=== PATIENT | female | born 1945 | race Caucasian/White ===

== ENCOUNTER → 2019-05-28 | Outpatient (CLI) | payer MEDICARE ==
--- NOTE | 2019-05-28 18:42 | REP ---
PET/CT: History: Solitary pulmonary nodule. Comparisons: Comparison CT studies of the chest from [facility] are reviewed dated May 06, 2019, July 17, 2018, and October 22, 2018. Pulmonary parenchymal opacities are noted in the left upper lobe posteriorly and in the right middle lobe. TECHNIQUE: 60 minutes following the intravenous injection of a 8.47 mCi dose of F-18 FDG, three-dimensional PET scintigraphy is acquired from the skull base to the proximal thighs. Triplanar noncontrast CT scanning is acquired through the same anatomic range for attenuation correction, and image registration with scan parameters optimized to minimize radiation exposure to the patient. PET scintigraphy and CT datasets were fused and displayed on a workstation with multiplanar and projection display capability. PET/CT Findings: There is discernible but not hypermetabolic uptake in the chronic infiltrative opacity in the posterior segment of the left upper lobe. Maximum standard uptake value here is 1.69. There is no visible FDG accumulation in the right middle lobe nodule. Maximum standard uptake value is below one, 0.84. No other abnormal pulmonary parenchymal or thoracic hypermetabolic uptake is seen. Head and neck soft tissues are unremarkable. No abnormal uptake is seen in the abdomen or pelvis. Impression: There is non hypermetabolic uptake in the chronic infiltrate in the left upper lobe. The right middle lobe nodule shows no discernible FDG accumulation. Low grade malignancy cannot be completely excluded at either site. No other abnormal uptake. Electronically Signed by Parth Jacobs MD 05/28/2019 08:03 P
== END ==
LOC: M PLARAD 11:57
PROVIDERS: ATTEND Internal Medicine Pulmonary Disease
DX: R91.1 Solitary pulmonary nodule (principal)
CPT/HCPCS: 78815; A9552

== ENCOUNTER → 2020-06-08 | Outpatient (CLI) | payer MEDICARE ==
[~2020-06-08] MED LIST: ATEN50TA2 PO; CALC250T PO; CLOP75TA2 PO; COLA100C5 PO; D31000TA2 PO; ECOT81TA5 PO; FURO20TA2 PO; LISI10TA22 PO; PROAAER10 INH; ROSU20TA5 PO; SYMB16INH INH; SYNT88TA2 PO; TIOT18INH INH
[2020-06-08 13:28] LABS: HEMATOCRIT 46.8 % (36.0-47.0); HEMOGLOBIN 14.8 g/dl (12.0-15.5); MEAN CORPUSCULAR HEMOGLOBIN 29.3 pg (27.0-33.0); MEAN CORPUSCULAR HGB CONC 31.6 g/dl (32.0-36.5); MEAN CORPUSCULAR VOLUME 92.7 fl (80.0-96.0); PLATELET COUNT, AUTOMATED 224 10^3/uL (150-450); RED BLOOD COUNT 5.05 10^6/uL (4.00-5.40)
[2020-06-08 13:33] LABS: ABG BASE EXCESS 1.1 (-2.0-2.0); ABG HCO3 25.5 MEQ/L (22.0-26.0); ABG PARTIAL PRESSURE CO2 39.9 mmHg (35.0-45.0); ABG PARTIAL PRESSURE O2 67.7 mmHg (75.0-100.0); ABG STANDARD HCO3 25.4 MEQ/L (22.0-26.0); ABG TOTAL CO2 26.8 MEQ/L (23.0-31.0); ABG pH (ARTERIAL) 7.424 UNITS (7.350-7.450)
[2020-06-08 13:39] LABS: PROTHROMBIN TIME 13.4 SECONDS (12.5-14.3)
[2020-06-08 13:40] LABS: PARTIAL THROMBOPLASTIN TIME 31.5 SECONDS (24.2-38.5)
[2020-06-08 13:41] LABS: APPEARANCE, URINE CLEAR (CLEAR); BACTERIA, URINE AUTO 1+ (NEGATIVE); BILIRUBIN, URINE AUTO NEGATIVE (NEGATIVE); BLOOD, URINE BLOOD 1+ (NEGATIVE); COLOR, URINE YELLOW (YELLOW); GLUCOSE, URINE (UA) AUTO NEGATIVE (NEGATIVE); KETONE, URINE AUTO NEGATIVE (NEGATIVE); LEUKOCYTE ESTERASE, URINE AUTO NEGATIVE (NEGATIVE); NITRITE, URINE AUTO NEGATIVE (NEGATIVE); PROTEIN, URINE AUTO NEGATIVE (NEGATIVE); RBC, URINE AUTO 3 /HPF (0-3); SPECIFIC GRAVITY URINE AUTO 1.017 (1.002-1.035); SQUAMOUS EPITHELIAL CELL UR AU 1 /HPF (0-6); UROBILINOGEN, URINE AUTO 0.2 mg/dL (0.0-2.0); WBC, URINE AUTO 0 /HPF (0-3)
[2020-06-08 14:58] LABS: BLOOD UREA NITROGEN 19 MG/DL (7-18); CALCIUM LEVEL 10.1 MG/DL (8.8-10.2); CARBON DIOXIDE LEVEL 32 MEQ/L (21-32); CHLORIDE LEVEL 103 MEQ/L (98-107); GLOMERULAR FILTRATION RATE > 60.0 (>39); GLUCOSE, FASTING 101 MG/DL (70-100); POTASSIUM SERUM 4.2 MEQ/L (3.5-5.1); SODIUM LEVEL 140 MEQ/L (136-145)
--- NOTE | 2020-06-08 19:59 | REP ---
INDICATION: LEFT LOBE ABNORMALITY COMPARISON: CT 05/06/2019 from [facility]. TECHNIQUE: PA/Lateral FINDINGS: Lungs: Ill-defined vague opacity is seen in the left upper lobe at the site of the previously identified CT abnormality. Otherwise there is mild diffuse accentuation of interstitial markings bilaterally. Heart: Normal in size. Mediastinum: Mediastinal silhouette unremarkable. Pleural angles: Unremarkable.. Bones and soft tissues: There are mild degenerative changes of the spine without compression deformity. IMPRESSION: Mild ill-defined opacity in left upper lobe at the site of the previously identified CT abnormality. <Electronically signed by Cezar Dias > 06/08/201954
== END ==
LOC: M ADMPAT 12:56
PROVIDERS: ATTEND Thoracic Surgery (Cardiothoracic Vascular Surgery)
DX: R91.1 Solitary pulmonary nodule (principal); R91.8 Other nonspecific abnormal finding of lung field

== ENCOUNTER → 2020-06-08 | Outpatient (CLI) | payer MEDICARE ==
[~2020-06-08] MED LIST changes: +ISOVUE-370 76% 100ML VIAL As Ordered ONE
--- NOTE | 2020-06-08 17:44 | REP ---
INDICATION: SOLITARY PULMONARY NODULE. COMPARISON: CT 05/06/2019, 10/22/2018 at [facility] TECHNIQUE: Noncontrast scanning with coronal and sagittal reconstructions provided. FINDINGS: In the medial segment of the right middle lobe there is a 6.5 mm solid nodule with a generally triangular shaped. It is unchanged by my direct measurement from 05/06/2019. In the left upper lobe abutting the anterior margin of the major fissure near its insertion, there is an ill-defined parenchymal focus which is increasing in size further by my measurement. It is now 3.7 cm in transverse diameter, previously 2.5 cm. There is apical pleuroparenchymal scarring on the right unchanged. Emphysematous changes in the mid and upper lung zones are seen and there is cylindrical bronchiectasis noted. Some dependent atelectatic changes in the deep sulcus and posteriorly in the right lower lobe. No pleural thickening, pleural based mass or other acute finding. The heart is not enlarged there is left atrial enlargement however. No pericardial thickening or effusion is seen. The aorta is without aneurysm or dissection. The main, right and left pulmonary arteries in the mediastinum are without filling defects the lobar vessels also were grossly unremarkable. There is no pathologic sized mediastinal, hilar, axillary or supraclavicular adenopathy. Bone windows show the superior endplate depression of L1 without evidence of acute compression deformity or destructive bone lesion. Sternum, manubrium, medial clavicles, shoulders and ribs grossly intact the upper abdominal organs visible were also grossly intact. There is a dextroconvex scoliosis of the mid to lower thoracic spine. No hiatal hernia. Low-density nodule in the left adrenal gland was proven to be CT low-attenuation with - 3.26 HU on the prior study by my measurement. Nothing acute in the upper abdomen IMPRESSION: 1. Stable pulmonary nodule in the medial segment right middle lobe. 2. Increasing size of patchy density in the posterior segment left upper lobe now 33.7 cm versus 2.5 cm on the previous CT. This should be viewed with some suspicion and consideration for PET-CT scanning is warranted in my opinion. Other chronic changes as described. No other new significant finding. <Electronically signed by Duran Pacheco > 06/08/20 [id number]
== END ==
LOC: M RAD 14:26
PROVIDERS: ATTEND Thoracic Surgery (Cardiothoracic Vascular Surgery)
DX: R91.1 Solitary pulmonary nodule (principal); R91.8 Other nonspecific abnormal finding of lung field; J44.9 Chronic obstructive pulmonary disease, unspecified
CPT/HCPCS: 36415; 71046; 71260; 80048; 81001; 82803; 85027; 85610; 85730; 93005; Q9967

== ENCOUNTER 2020-06-15 07:30 | Inpatient (IN) | payer MEDICARE ==
[~2020-06-15] VITALS: Ht 167.6 cm; Wt 73.4 kg
[~2020-06-15 07:30] MED LIST changes: -ISOVUE-370 76% 100ML VIAL As Ordered ONE; +LIDOCAINE 1% MDV 20ML VIAL SQ PRN; +LIDOCAINE 2% 100MG/5ML SDV (FOR ANES.) As Ordered ONE; +LIDOCAINE 2% W/EPINEPHRINE 20ML VIAL **PRES FREE As Ordered ONE; +LR 1,000 ML IV ONE; +MIDAZOLAM INJ 2MG/2ML VIAL (J2250 PER 1MG) As Ordered ONE; +MIDAZOLAM INJ 2MG/2ML VIAL (J2250 PER 1MG) IV PRN; +MORPHINE 10 MG/ML 1ML VIAL (J2270) As Ordered ONE; +MORPHINE PRES-FREE INJ 10 MG/10 ML VIAL (J2274) As Ordered ONE; +ONDANSETRON 4MG/2ML VIAL As Ordered ONE; +PHENYLEPHRINE 10MG/ML 1ML VIAL (J2370 PER 1) As Ordered ONE; +PHENYLephrine 500MCG 5ML (100MCG/ML) SYRINGE As Ordered ONE; +ROCURONIUM BROMIDE 50 MG/5 ML VIAL As Ordered ONE; +SUGAMMADEX SODIUM 500 MG/5 ML VIAL (BRIDION) As Ordered ONE; +ceFAZolin SOD 2 GM in IV 1 EA IV ONE; +dexameTHASONE 4 MG/ML 1ML VIAL (J1100 PER 1MG) As Ordered ONE; +ePHEDrine SULFATE 25 MG/5 ML(5MG/ML) SYRINGE As Ordered ONE; +fentaNYL 100 MCG/2 ML INJECTION (J3010) As Ordered ONE; +fentaNYL 100 MCG/2 ML INJECTION (J3010) IV PRN; +propofoL 200 MG/20 ML VIAL As Ordered ONE
[2020-06-15] MEDS ORDERED: BUPIVACAINE LIPOSOME/PF 1.3% 20ML VIAL (13.3MG/ML)(EXPAREL)(C9290 PER1MG) As Ordered ONE (07:31)
[2020-06-15] MEDS ORDERED: BUPIVACAINE HCL 0.5% 10ML VIAL As Ordered ONE (07:31)
[2020-06-15] MEDS ORDERED: CETACAINE SPRAY 5GM As Ordered ONE (07:31)
[2020-06-15] MEDS ORDERED: MUPIROCIN 2% OINT 22 GM TUBE As Ordered ONE (07:55)
[2020-06-15] MEDS ORDERED: MIDAZOLAM INJ 2MG/2ML VIAL (J2250 PER 1MG) As Ordered ONE (08:47)
[2020-06-15] MEDS ORDERED: fentaNYL 100 MCG/2 ML INJECTION (J3010) As Ordered ONE (08:47)
[2020-06-15] MEDS ORDERED: LEVALBUTEROL 1.25 MG/0.5 ML CONCENTRATE NEB NEB PRN (08:55)
[2020-06-15] MEDS ORDERED: NORCO, ANEXSIA 5/325MG TABLET (HYDROcodone/ACETAMINOPHEN) PO PRN (08:55)
[2020-06-15] MEDS ORDERED: LIDOCAINE 1% MDV 20ML VIAL XX ONE (08:55)
[2020-06-15] MEDS ORDERED: PERCOCET 5MG/325MG TAB PO PRN ×3 (08:55→15:10)
[2020-06-15] MEDS ORDERED: MUPIROCIN 2% OINT 22 GM TUBE TOP ONE (09:00)
[2020-06-15] MEDS ORDERED: ONDANSETRON 4MG/2ML VIAL IV PRN ×2 (09:40→15:10)
[2020-06-15] MEDS ORDERED: WALLBOXKEY XX PRN (09:40)
[2020-06-15] MEDS ORDERED: FENTANYL/BUPIVACAINE/NACL BAG 250 ML EPIDURAL SCH (09:40)
[2020-06-15] MEDS ORDERED: diphenhydrAMINE 50MG/ML VIAL (J1200) IV PRN (09:40)
[2020-06-15] MEDS ORDERED: NALOXONE INJ 0.4MG/1ML VIAL (J2310 PER 1MG) IV PRN (09:40)
[2020-06-15] MEDS ORDERED: EPIDURAL/PCA KEYS XX PRN (09:40)
[2020-06-15 09:45] LABS: BASO % 0.3 % (0.0-1.0); EOS # 0.1 10^3/uL (0.0-0.5); HEMATOCRIT 44.1 % (36.0-47.0); HEMOGLOBIN 14.1 g/dl (12.0-15.5); LYMPH # 0.8 10^3/uL (1.5-5.0); LYMPH % 11.9 % (24.0-44.0); MEAN CORPUSCULAR HEMOGLOBIN 29.1 pg (27.0-33.0); MEAN CORPUSCULAR VOLUME 91.1 fl (80.0-96.0); MONO # 0.4 10^3/uL (0.0-0.8); MONO % 6.1 % (2.0-8.0); NEUTROPHILS # 5.1 10^3/uL (1.5-8.5); NEUTROPHILS % 80.4 % (36.0-66.0); PLATELET COUNT, AUTOMATED 196 10^3/uL (150-450); RED BLOOD COUNT 4.84 10^6/uL (4.00-5.40); WHITE BLOOD COUNT 6.3 10^3/uL (4.0-10.0)
[2020-06-15 10:16] LABS: BLOOD UREA NITROGEN 15 MG/DL (7-18); CALCIUM LEVEL 9.4 MG/DL (8.8-10.2); CARBON DIOXIDE LEVEL 25 MEQ/L (21-32); CHLORIDE LEVEL 111 MEQ/L (98-107); GLOMERULAR FILTRATION RATE > 60.0 (>39); GLUCOSE, FASTING 109 MG/DL (70-100); POTASSIUM SERUM 4.1 MEQ/L (3.5-5.1); SODIUM LEVEL 142 MEQ/L (136-145)
[2020-06-15] MEDS ORDERED: HYDROmorphone HCL 2 MG/ML 1ML VIAL (J1170) As Ordered ONE (12:05)
[2020-06-15] MEDS ORDERED: ROCURONIUM BROMIDE 50 MG/5 ML VIAL As Ordered ONE (13:01)
[2020-06-15] MEDS ORDERED: PHENYLephrine 500MCG 5ML (100MCG/ML) SYRINGE As Ordered ONE (14:35)
[2020-06-15] MEDS ORDERED: LR 1,000 ML IV SCH (15:10)
[2020-06-15] MEDS ORDERED: METOCLOPRAMIDE INJ 10MG/2ML VIAL (J2765 PER 1) IV PRN (15:10)
[2020-06-15] MEDS ORDERED: fentaNYL 100 MCG/2 ML INJECTION (J3010) IV PRN (15:10)
--- NOTE | 2020-06-15 15:17 | REP ---
INDICATION: s/p lung resection COMPARISON: 06/08/2020 TECHNIQUE: Portable AP view of the chest FINDINGS: Two left-sided chest tubes extend to the left apex and a small left pneumothorax is identified along with small amount of subcutaneous emphysema. Lung anders demonstrate chronic appearing interstitial changes. No focal consolidation. No effusion. Mediastinum and cardiac silhouette stable including chronic scoliosis. IMPRESSION: 1. Small left apical pneumothorax. Two left apical chest tubes. 2. Chronic appearing pulmonary parenchymal changes. <Electronically signed by Placido Valdes > 06/15/20 [id number]
[2020-06-15] MEDS: KCL 20MEQ IN D5/NS 1000ML 1,000 ML IV SCH (15:20)
[2020-06-15 15:42] LABS: ABG BASE EXCESS -3.9 (-2.0-2.0); ABG HCO3 21.7 MEQ/L (22.0-26.0); ABG O2 SATURATION 99.9 % (95.0-99.0); ABG PARTIAL PRESSURE CO2 41.5 mmHg (35.0-45.0); ABG PARTIAL PRESSURE O2 344.8 mmHg (75.0-100.0); ABG STANDARD HCO3 21.3 MEQ/L (22.0-26.0); ABG pH (ARTERIAL) 7.337 UNITS (7.350-7.450)
[2020-06-15] MEDS: KETOROLAC 30 MG/ML 1ML VIAL IV SCH ×3 (15:57→23:44)
[2020-06-15] MEDS: ONDANSETRON 4MG/2ML VIAL IV PRN ×2 (16:01→19:40)
[2020-06-15 16:21] LABS: HEMATOCRIT 41.3 % (36.0-47.0); HEMOGLOBIN 13.4 g/dl (12.0-15.5); MEAN CORPUSCULAR HEMOGLOBIN 29.7 pg (27.0-33.0); MEAN CORPUSCULAR HGB CONC 32.4 g/dl (32.0-36.5); MEAN CORPUSCULAR VOLUME 91.6 fl (80.0-96.0); PLATELET COUNT, AUTOMATED 166 10^3/uL (150-450); RED BLOOD COUNT 4.51 10^6/uL (4.00-5.40); WHITE BLOOD COUNT 9.3 10^3/uL (4.0-10.0)
[2020-06-15 16:46] LABS: BLOOD UREA NITROGEN 10 MG/DL (7-18); CALCIUM LEVEL 7.9 MG/DL (8.8-10.2); CARBON DIOXIDE LEVEL 24 MEQ/L (21-32); CHLORIDE LEVEL 111 MEQ/L (98-107); CREATININE FOR GFR 0.55 MG/DL (0.55-1.30); GLOMERULAR FILTRATION RATE > 60.0 (>39); GLUCOSE, FASTING 123 MG/DL (70-100); POTASSIUM SERUM 3.8 MEQ/L (3.5-5.1); SODIUM LEVEL 141 MEQ/L (136-145)
[2020-06-15] MEDS: METOCLOPRAMIDE INJ 10MG/2ML VIAL (J2765 PER 1) IV PRN ×2 (16:48→22:40)
[2020-06-15 17:20] VITALS: BP 153/72
[2020-06-15 17:29] VITALS: BP_SYST 148; BP_SYST 149; BP_DIAS 67; BP_DIAS 99
[2020-06-15 18:00] VITALS: BP_SYST 134; BP_SYST 146; BP_DIAS 60; BP_DIAS 63
[2020-06-15] MEDS: MOM 30ML SUSPENSION UDC PO SCH (18:06)
[2020-06-15] MEDS: atenoloL 50 MG TAB PO SCH (18:07)
[2020-06-15] MEDS: ROSUVASTATIN 10 MG TAB (CRESTOR) PO SCH (18:08)
[2020-06-15] MEDS: PANTOPRAZOLE 40MG TAB (PROTONIX) PO SCH (18:08)
[2020-06-15] MEDS: VITAMIN D 1,000 INTERNATIONAL UNITS TABLET PO SCH (18:08)
[2020-06-15] MEDS: ASPIRIN 81MG ENTERIC TABLET PO SCH (18:08)
[2020-06-15] MEDS: LEVALBUTEROL 1.25 MG/0.5 ML CONCENTRATE NEB NEB SCH ×2 (18:18→19:53)
[2020-06-15] MEDS: ceFAZolin SOD 1 GM in D5W MINI-BAG PLUS 50 ML IV SCH ×2 (18:25→23:44)
[2020-06-15 18:30] VITALS: BP_SYST 135; BP_SYST 154; BP_DIAS 63; BP_DIAS 72
[2020-06-15] MEDS: SYMBICORT 160/4.5MCG INHALER 6GM INH SCH (19:53)
[2020-06-15] MEDS: TIOTROPIUM INHALER/CAPSULE (SPIRIVA) INH SCH (19:53)
[2020-06-15 20:00] VITALS: BP_SYST 135; BP_SYST 144; BP_DIAS 62; BP_DIAS 99
[2020-06-15] MEDS: HEPARIN SOD (PORCINE) 5000UNITS/ML 1ML VIAL/SYRINGE SC SCH (20:06)
[2020-06-15 22:00] VITALS: BP_SYST 125; BP_SYST 94; BP_DIAS 44; BP_DIAS 53
[2020-06-16] VITALS (9 sets, daily range): BP systolic 107–138; BP diastolic 49–90
[2020-06-16] MEDS: LEVALBUTEROL 1.25 MG/0.5 ML CONCENTRATE NEB NEB SCH ×4 (01:53→20:00)
[2020-06-16 04:16] LABS: BASO % 0.1 % (0.0-1.0); HEMATOCRIT 37.9 % (36.0-47.0); HEMOGLOBIN 12.1 g/dl (12.0-15.5); LYMPH # 0.4 10^3/uL (1.5-5.0); LYMPH % 4.3 % (24.0-44.0); MEAN CORPUSCULAR HEMOGLOBIN 29.2 pg (27.0-33.0); MEAN CORPUSCULAR HGB CONC 31.9 g/dl (32.0-36.5); MEAN CORPUSCULAR VOLUME 91.5 fl (80.0-96.0); MONO # 0.6 10^3/uL (0.0-0.8); MONO % 6.2 % (2.0-8.0); NEUTROPHILS # 8.9 10^3/uL (1.5-8.5); NEUTROPHILS % 89.1 % (36.0-66.0); PLATELET COUNT, AUTOMATED 180 10^3/uL (150-450); RED BLOOD COUNT 4.14 10^6/uL (4.00-5.40)
[2020-06-16 04:41] LABS: BLOOD UREA NITROGEN 10 MG/DL (7-18); CALCIUM LEVEL 7.9 MG/DL (8.8-10.2); CARBON DIOXIDE LEVEL 23 MEQ/L (21-32); CHLORIDE LEVEL 112 MEQ/L (98-107); CREATININE FOR GFR 0.77 MG/DL (0.55-1.30); GLOMERULAR FILTRATION RATE > 60.0 (>39); GLUCOSE, FASTING 149 MG/DL (70-100); POTASSIUM SERUM 3.9 MEQ/L (3.5-5.1); SODIUM LEVEL 141 MEQ/L (136-145)
[2020-06-16] MEDS: KETOROLAC 30 MG/ML 1ML VIAL IV SCH ×4 (06:01→23:22)
[2020-06-16] MEDS: LEVOTHYROXINE 88MCG TABLET (0.088 MG) PO SCH (06:02)
[2020-06-16] MEDS: KCL 20MEQ IN D5/NS 1000ML 1,000 ML IV SCH ×2 (06:02→21:55)
[2020-06-16 06:10] LABS: ABG BASE EXCESS -1.9 (-2.0-2.0); ABG HCO3 22.5 MEQ/L (22.0-26.0); ABG O2 SATURATION 97.8 % (95.0-99.0); ABG PARTIAL PRESSURE CO2 37.2 mmHg (35.0-45.0); ABG PARTIAL PRESSURE O2 95.7 mmHg (75.0-100.0); ABG STANDARD HCO3 22.9 MEQ/L (22.0-26.0); ABG TOTAL CO2 23.7 MEQ/L (23.0-31.0)
[2020-06-16] MEDS: ONDANSETRON 4MG/2ML VIAL IV PRN ×2 (07:22→12:30)
[2020-06-16] MEDS: METOCLOPRAMIDE INJ 10MG/2ML VIAL (J2765 PER 1) IV PRN (07:45)
--- NOTE | 2020-06-16 08:20 | REP ---
INDICATION: s/p lung resection COMPARISON: 06/15/2020 TECHNIQUE: PA and lateral. FINDINGS: Postsurgical changes involving the left hemithorax with 2 stable chest tubes extending to the left apex and small residual apical pneumothorax appear relatively unchanged. Minimal basilar atelectasis cannot be excluded. No obvious effusion. Mediastinum and cardiac silhouette are stable and within normal limits. Skeletal structures are status quo. IMPRESSION: Stable postsurgical changes involving the left hemithorax including small left apical pneumothorax. No new acute process appreciated. <Electronically signed by Placido Valdes > 06/16/20 0841
[2020-06-16] MEDS: ROSUVASTATIN 10 MG TAB (CRESTOR) PO SCH (09:00)
[2020-06-16] MEDS: MOM 30ML SUSPENSION UDC PO SCH (09:00)
[2020-06-16] MEDS: ASPIRIN 81MG ENTERIC TABLET PO SCH (09:00)
[2020-06-16] MEDS: PANTOPRAZOLE 40MG TAB (PROTONIX) PO SCH (09:00)
[2020-06-16] MEDS: VITAMIN D 1,000 INTERNATIONAL UNITS TABLET PO SCH (09:00)
[2020-06-16] MEDS: ceFAZolin SOD 1 GM in D5W MINI-BAG PLUS 50 ML IV SCH ×3 (09:13→23:21)
[2020-06-16] MEDS: HEPARIN SOD (PORCINE) 5000UNITS/ML 1ML VIAL/SYRINGE SC SCH ×2 (09:16→20:16)
[2020-06-16] MEDS: SYMBICORT 160/4.5MCG INHALER 6GM INH SCH ×2 (09:27→20:27)
--- NOTE | 2020-06-16 10:53 | RO ---
OPERATIVE NOTE DATE OF OPERATION: 06/15/2020 PREOPERATIVE DIAGNOSIS: Left upper lobe lung lesion. POSTOPERATIVE DIAGNOSIS: Well-differentiated adenocarcinoma. PROCEDURE: Left upper lobe wedge resection with VATS techniques followed by a left upper lobectomy via an open thoracotomy with a mediastinal lymphadenectomy, a five-level rib block and a bronchoscopy. SURGEON: Jose Mbary MD NURSE CONSULTANT: ANESTHESIA: FINDINGS: The lesion was surprisingly easy to find thoracoscopically. A large piece of left upper lobe was then wedged and sent to pathology. I went to pathology to go over the slides with the pathologist and it was indeed at first a very hard call but there were mycotic features seen with a well differentiated adenocarcinoma. We therefore proceeded to a lobectomy. Bronchoscopy revealed a normal branching tracheobronchial tree with scant secretions. There were no endobronchial lesions. DESCRIPTION OF PROCEDURE: Under satisfactory single-lumen tube intubation and general anesthesia, the bronchoscope was passed into the tracheobronchial tree. The above findings were noted. Each segment and subsegment was thoroughly inspected. There were only scant secretions. There were no endobronchial lesions. The patient was then turned into the right lateral decubitus position and prepped and draped in the usual sterile fashion. Three thoracoscopic incisions were made. There were no adhesions to the chest wall and there was a complete fissure. The lesion was seen as a diffuse brown to us patchy area on the fissure of the left upper lobe. This was wedged out and sent to pathology. The wedge was accomplished with an [place] 4.5 stapler. Upon receiving the report from pathology, preparations were made for a thoracotomy. A posterolateral incision was made and the latissimus dorsi was divided as was the slip of the serratus anterior. The chest was entered in the fifth intercostal space above the sixth rib. I had to extend the incision to make room to operate secondary to her body habitus physiology. Dissection was started in the posterior interlobar pulmonary artery by dissecting the posterior mediastinum. The posterior fissure was completed by use of a harmonic scalpel. Dissection was carried up onto the interlobar pulmonary artery in the fissure. There was about 5-7 mm of lung tissue between the fissure and the vessels themselves necessitating that approach. The inter-pulmonary artery was then dissected up towards the main pulmonary artery, noting four branches. Each of these branches was taken with a vascular stapler. The pulmonary arteries were rather adherent and sticky secondary to an old inflammatory process which made the dissection a little more lengthy and tedious. Finally after dividing all the vessels and particularly the terminal lingular artery, the mediastinal pulmonary hilum was then incised and the inferior and superior pulmonary veins could be visualized. The inferior pulmonary ligament was taken down by the use of electrocautery. I then completed the fissure anteriorly by use of an [place] ASHIA stapler. This then left the vein in the bronchus. The vein was again found to be quite adherent and sticky to the underlying bronchus which again required a more lengthy dissection than usual. Finally it could be isolated with a vessel loop being placed around it and the dissection completed and divided by use of a ASHIA vascular stapler. This then left the bronchus. The bronchus was stapled with an [place] 4.5 mm stapler but was not fired until the lung was reinflated to assure that the left lower lobe would inflate properly which it did. The stapler was then fired and the specimen was delivered to the lab for pathological examination. Attention was then turned to the AP window. It was thoroughly dissected and only two small nodes were found. The course of the phrenic nerve was verified so as to assiduously preserve. There was an inferior pulmonary ligament noted which was also removed by use of the harmonic scalpel. The bronchus was tested at 30 cm of water and it was found to be intact. Tisseel glue was then placed along the vessel staple lines as well as the bronchus. Final rib block consisting of Marcaine and Exparel was then instilled below each rib. Two chest tubes were placed, a #24 straight and 24 curved posteriorly. The ribs were reapproximated with the use of #1 Prolene [id number] sutures. Just prior to tying the pericostal sutures, the staple lines were again covered with another vial of Tisseel glue including parenchymal leaks. The extrathoracic muscles were reapproximated by use of running 0 Vicryl suture, the subcutaneous tissue by use of 3-0 Vicryl suture and the skin by use of 3-0 Monocryl subcuticular suture. The auxiliary incisions for the VATS procedure were closed in the same way. The patient tolerated the procedure well and left the operating room in satisfactory condition for the recovery room.
--- NOTE | 2020-06-16 11:48 | IPN ---
PROGRESS NOTE DATE: 06/16/2020 SUBJECTIVE: This is now the first postoperative day for Mrs. Miramontes. She had a physiologically stable night of surgery; however, she has been nauseated ever since coming back from the operating room. I suspect the nausea is secondary to the Fentanyl and the epidural, and I have asked anesthesia to just put bupivacaine in the epidural. OBJECTIVE: VITAL SIGNS: Show a T-max of 97.7 with a heart rate that ranges between 59 and 97 in sinus rhythm. Respiratory rate of constant 18 who is 97% to 99% saturated on 2 liters nasal cannula and whose blood pressure is ranging between 107/49 to 131/54. INTAKE AND OUTPUT: Over the past 24 hours has been recorded as 4150 in and 1605 out for a positivity of 2500 mL. She has put out 330 mL from the chest tube and she has a considerable air leak. Weight today is 74.3 kg compared to 71 kg yesterday. She has taken in very little p.o. intake secondary to her nausea. She has put 1175 mL in urine. RESPIRATORY: Her left lung shows some faint rales in late inspiration. There is no subcutaneous emphysema. Left lung shows normal vesicular sounds. Percussion notes are full to the diaphragm. CARDIAC: Without murmurs, clicks, gallops, or rubs. I cannot feel her PMI. S1 and S2 are normal. ABDOMEN: Soft and nontender. Bowel sounds are positive. There is no hepatomegaly. No CVA tenderness. EXTREMITIES: Show no pretibial edema. No calf tenderness. No differential swelling of the upper extremities. SKIN: Warm, dry, and perfused without cyanosis or mottling, including that of the nail beds and knees. NECK: Supple. There is no jugular venous distention. No subcutaneous emphysema. Trachea is midline. MOUTH: Shows the mucous membranes to be pink and moist. Lips and commisures without lesions. EYES: Show her pupils equal and reactive. Extraocular movements are intact. Sclerae nonicteric. NEUROLOGIC: Shows II through XII intact. Normal gross motor, gross sensation intact. Gait is not tested. PSYCHIATRIC: Shows her to be awake, alert, and oriented x3 with appropriate mood and affect and conversational. LABORATORY DATA: Her white count today is 10.0 with hemoglobin and hematocrit of 12.1 and 37.9; this is down from 13.4 and 41.3 yesterday secondary to hemodilution. Platelet count is 180,000 and stable and differential shows 89% neutrophils, 4% lymphocytes, and 6% monocytes. There are no immature forms and no toxic granulations. Her electrolytes today are normal with a BUN and creatinine of 10 and 0.77, glucose of 149, and calcium of 7.9. Blood gases today show a pH of 7.40 with a pCO2 of 37 and a pO2 of 95 with a base excess of -1.9. IMAGING DATA: Her chest x-ray today shows her lungs fully expand to the chest wall. There is some slight subcutaneous emphysema on the upper lateral chest wall. Chest tubes are in good place. I see no infiltrates. Final pathology is pending. IMPRESSION: 1. Well-differentiated adenocarcinoma left upper lobe. 2. Postoperative day one status post left upper lobectomy. 3. Chronic obstructive pulmonary disease (COPD). 4. Hypertension. 5. Peripheral vascular disease previously on Plavix. 6. Hypothyroidism. PLAN AND DISCUSSION: I will continue her chest tubes on suction today. As noted above, we will discontinue the Fentanyl from her epidural to see if it will help her nausea. Final pathology is still pending. We will discontinue her arterial line and continue her Echavarria catheter.
[2020-06-16] MEDS: BUPIVACAINE/NACL BAG 250 ML EPIDURAL SCH (12:30)
[2020-06-16] MEDS ORDERED: METOCLOPRAMIDE INJ 10MG/2ML VIAL (J2765 PER 1) IV PRN (13:00)
[2020-06-16] MEDS ORDERED: NALOXONE INJ 0.4MG/1ML VIAL (J2310 PER 1MG) IV PRN (13:00)
[2020-06-16] MEDS ORDERED: EPIDURAL/PCA KEYS XX PRN (13:00)
[2020-06-16] MEDS ORDERED: diphenhydrAMINE 50MG/ML VIAL (J1200) IV PRN (13:00)
[2020-06-16] MEDS ORDERED: ONDANSETRON 4MG/2ML VIAL IV PRN (13:00)
[2020-06-16] MEDS ORDERED: WALLBOXKEY XX PRN (13:00)
[2020-06-16] MEDS: atenoloL 50 MG TAB PO SCH (18:16)
[2020-06-16] MEDS: TIOTROPIUM INHALER/CAPSULE (SPIRIVA) INH SCH (20:27)
[2020-06-17] VITALS (7 sets, daily range): BP systolic 115–152; BP diastolic 55–74
[2020-06-17] MEDS: KCL 20MEQ IN D5/NS 1000ML 1,000 ML IV SCH ×2 (00:55→15:19)
[2020-06-17] MEDS: LEVALBUTEROL 1.25 MG/0.5 ML CONCENTRATE NEB NEB SCH ×4 (02:00→20:00)
[2020-06-17 04:49] LABS: BASO % 0.1 % (0.0-1.0); EOS % 0.3 % (0.0-3.0); HEMOGLOBIN 11.8 g/dl (12.0-15.5); LYMPH # 0.5 10^3/uL (1.5-5.0); LYMPH % 6.7 % (24.0-44.0); MEAN CORPUSCULAR HEMOGLOBIN 29.7 pg (27.0-33.0); MEAN CORPUSCULAR HGB CONC 31.9 g/dl (32.0-36.5); MEAN CORPUSCULAR VOLUME 93.2 fl (80.0-96.0); MONO # 0.6 10^3/uL (0.0-0.8); MONO % 7.2 % (2.0-8.0); NEUTROPHILS # 6.7 10^3/uL (1.5-8.5); NEUTROPHILS % 85.4 % (36.0-66.0); PLATELET COUNT, AUTOMATED 171 10^3/uL (150-450); RED BLOOD COUNT 3.97 10^6/uL (4.00-5.40); WHITE BLOOD COUNT 7.8 10^3/uL (4.0-10.0)
[2020-06-17] MEDS: ONDANSETRON 4MG/2ML VIAL IV PRN ×2 (04:52→13:01)
[2020-06-17 05:19] LABS: BLOOD UREA NITROGEN 8 MG/DL (7-18); CALCIUM LEVEL 8.3 MG/DL (8.8-10.2); CARBON DIOXIDE LEVEL 26 MEQ/L (21-32); CHLORIDE LEVEL 114 MEQ/L (98-107); CREATININE FOR GFR 0.55 MG/DL (0.55-1.30); GLOMERULAR FILTRATION RATE > 60.0 (>39); GLUCOSE, FASTING 114 MG/DL (70-100); POTASSIUM SERUM 4.3 MEQ/L (3.5-5.1); SODIUM LEVEL 143 MEQ/L (136-145)
[2020-06-17] MEDS: LEVOTHYROXINE 88MCG TABLET (0.088 MG) PO SCH (06:02)
[2020-06-17] MEDS: KETOROLAC 30 MG/ML 1ML VIAL IV SCH ×3 (06:03→17:11)
--- NOTE | 2020-06-17 07:51 | REP ---
INDICATION: s/p lung resection COMPARISON: 06/16/2020 TECHNIQUE: PA and lateral. FINDINGS: Small left apical pneumothorax slightly increased from prior examination. Two left-sided chest tubes extending to the apex remains stable. Aerated lung anders are essentially unchanged. Mediastinum and cardiac silhouette within normal limits. Skeletal structures stable. IMPRESSION: 1. Slight increased to the left apical pneumothorax. <Electronically signed by Plaicdo Valdes > 06/17/20 0798
[2020-06-17] MEDS: SYMBICORT 160/4.5MCG INHALER 6GM INH SCH ×2 (07:54→20:00)
[2020-06-17] MEDS: HEPARIN SOD (PORCINE) 5000UNITS/ML 1ML VIAL/SYRINGE SC SCH ×2 (08:44→20:13)
[2020-06-17] MEDS: atenoloL 50 MG TAB PO SCH (08:50)
[2020-06-17] MEDS: ROSUVASTATIN 10 MG TAB (CRESTOR) PO SCH (08:50)
[2020-06-17] MEDS: VITAMIN D 1,000 INTERNATIONAL UNITS TABLET PO SCH (08:51)
[2020-06-17] MEDS: PANTOPRAZOLE 40MG TAB (PROTONIX) PO SCH (08:51)
[2020-06-17] MEDS: MOM 30ML SUSPENSION UDC PO SCH (09:00)
[2020-06-17] MEDS: ASPIRIN 81MG ENTERIC TABLET PO SCH (09:06)
[2020-06-17] MEDS: BISACODYL 10 MG SUPP PR PRN (11:49)
[2020-06-17] MEDS ORDERED: FUROSEMIDE 40MG/4ML VIAL (J1940) IV ONE (12:00)
[2020-06-17] MEDS: BUPIVACAINE/NACL BAG 250 ML EPIDURAL SCH (13:07)
[2020-06-17] MEDS: DOCUSATE SODIUM 100MG CAPSULE PO PRN (20:06)
[2020-06-17] MEDS: TIOTROPIUM INHALER/CAPSULE (SPIRIVA) INH SCH (20:43)
[2020-06-18] VITALS (7 sets, daily range): BP systolic 117–160; BP diastolic 56–71
[2020-06-18] MEDS: KETOROLAC 30 MG/ML 1ML VIAL IV SCH ×5 (00:30→23:40)
[2020-06-18] MEDS: LEVALBUTEROL 1.25 MG/0.5 ML CONCENTRATE NEB NEB SCH ×4 (01:36→19:46)
[2020-06-18 05:18] LABS: BLOOD UREA NITROGEN 10 MG/DL (7-18); CARBON DIOXIDE LEVEL 30 MEQ/L (21-32); CHLORIDE LEVEL 111 MEQ/L (98-107); CREATININE FOR GFR 0.58 MG/DL (0.55-1.30); GLOMERULAR FILTRATION RATE > 60.0 (>39); GLUCOSE, FASTING 105 MG/DL (70-100); POTASSIUM SERUM 3.6 MEQ/L (3.5-5.1); SODIUM LEVEL 143 MEQ/L (136-145)
[2020-06-18 05:27] LABS: BASO % 0.2 % (0.0-1.0); EOS # 0.1 10^3/uL (0.0-0.5); EOS % 1.1 % (0.0-3.0); HEMATOCRIT 34.9 % (36.0-47.0); HEMOGLOBIN 11.2 g/dl (12.0-15.5); LYMPH # 0.9 10^3/uL (1.5-5.0); LYMPH % 10.5 % (24.0-44.0); MEAN CORPUSCULAR HEMOGLOBIN 29.9 pg (27.0-33.0); MEAN CORPUSCULAR HGB CONC 32.1 g/dl (32.0-36.5); MEAN CORPUSCULAR VOLUME 93.3 fl (80.0-96.0); MONO # 0.6 10^3/uL (0.0-0.8); MONO % 7.2 % (2.0-8.0); NEUTROPHILS # 6.6 10^3/uL (1.5-8.5); NEUTROPHILS % 80.8 % (36.0-66.0); PLATELET COUNT, AUTOMATED 193 10^3/uL (150-450); RED BLOOD COUNT 3.74 10^6/uL (4.00-5.40); WHITE BLOOD COUNT 8.2 10^3/uL (4.0-10.0)
[2020-06-18] MEDS: LEVOTHYROXINE 88MCG TABLET (0.088 MG) PO SCH (06:02)
[2020-06-18] MEDS: SYMBICORT 160/4.5MCG INHALER 6GM INH SCH ×2 (07:30→19:46)
[2020-06-18] MEDS ORDERED: POTASSIUM CHLORIDE 10 MEQ SR TABLET PO ONE (08:00)
[2020-06-18] MEDS ORDERED: FUROSEMIDE 40MG/4ML VIAL (J1940) IV ONE (08:00)
--- NOTE | 2020-06-18 08:23 | REP ---
INDICATION: s/p lung resection COMPARISON: 06/17/2020 TECHNIQUE: PA and lateral. FINDINGS: Left-sided chest tubes extending to the apex are in stable position and the left apical pneumothorax appears decreased in size. Postsurgical changes to the left hemithorax along with subcutaneous emphysema again noted and similar to prior examination. Subtle superimposed acute left basilar atelectasis cannot be excluded. Blunting to the right costophrenic angle is again noted and may represent small right pleural reaction. IMPRESSION: 1. Decreased left apical pneumothorax. 2. Continued postsurgical changes involving the left hemithorax. 3. Subtle increased left basilar atelectasis cannot be excluded. <Electronically signed by Placido Valdes > 06/18/20 0819
[2020-06-18] MEDS: ASPIRIN 81MG ENTERIC TABLET PO SCH (08:50)
[2020-06-18] MEDS: atenoloL 50 MG TAB PO SCH (08:52)
[2020-06-18] MEDS: ROSUVASTATIN 10 MG TAB (CRESTOR) PO SCH (08:52)
[2020-06-18] MEDS: PANTOPRAZOLE 40MG TAB (PROTONIX) PO SCH (08:52)
[2020-06-18] MEDS: VITAMIN D 1,000 INTERNATIONAL UNITS TABLET PO SCH (08:52)
[2020-06-18] MEDS: MOM 30ML SUSPENSION UDC PO SCH (08:53)
[2020-06-18] MEDS: HEPARIN SOD (PORCINE) 5000UNITS/ML 1ML VIAL/SYRINGE SC SCH ×2 (08:53→21:26)
--- NOTE | 2020-06-18 10:17 | IPN ---
PROGRESS NOTE DATE: 06/17/2020 This is now the second postoperative day for Ms. Miramontes. Her pain is being well controlled, and her nausea is much better. She is starting to take oral intake. The intravenous (IV) is still going, however. She still has a very large air leak. Her vital signs show a maximum temperature of 100.5 and now defervesced to 96.9. Heart rate ranges between 60-75 in a sinus rhythm, respiratory rate of 16-18 without the use of accessory muscles, who is 95%-99% saturated on 2 liters nasal cannula and whose blood pressure is ranging between 117/70 to 139/64. Her intake and output for the past 24 hours has been recorded as 2398 in and 1890 out for a positivity of 508 mL. She has put 615 mL out of the chest tube and still with a large air leak. Will diurese her today. Her weight is pending. On physical examination, her lung show the squeaks and whistles consistent with her large air leak on the left side. Right side shows normal vesicular sounds without wheezes, rhonchi, or rales. Percussion notes are full to the diaphragm. Cardiac exam is without murmurs, clicks, gallops, or rubs. I cannot feel her point of maximal impulse (PMI). S1 and S2 are normal. Abdomen is soft and nontender. Bowel sounds are positive. There is no hepatomegaly. No costovertebral angle (CVA) tenderness. Extremities show no pretibial edema, no calf tenderness, no differential swelling of the upper extremities. Skin is warm, dry, and perfused without cyanosis or mottling, including that of the nailbeds and knees. Neck is supple. There is no jugular venous distention. No subcutaneous emphysema. Trachea is midline. Mouth shows the mucous membranes to be pink and moist. Lips and commissures without lesions. No thrush. Eyes show her pupils to be equal and reactive. Extraocular motion intact. Sclerae anicteric. Neurologic shows II-XII intact. Normal gross motor, gross sensation intact. Gait is not tested. Psychiatric shows her to be awake, alert, and oriented times three with appropriate mood and affect and conversational. Her white count today is 7.8 with a hemoglobin and hematocrit of 11.8 and 37.0, essentially unchanged from yesterday. Platelet count is 171, and differential shows 85% neutrophils, 6% lymphocytes, and 7% monocytes. There are no immature forms or toxic granulations. Her electrolytes are essentially normal with a BUN and creatinine of 8 and 0.55, a glucose of 114, and a calcium of 8.3. Her chest x-ray shows her lung fully expanded to the chest wall. There is minimal subcutaneous emphysema in the superior portion of the chest laterally. I see no infiltrates. Chest tubes are in good place. IMPRESSION: 1. Postoperative day #2, status post left upper lobe lobectomy. 2. Well-differentiated adenocarcinoma, left upper lobe, [id number], which matched to stage IB. 3. Chronic obstructive pulmonary disease (COPD). 4. Hypertension . 5. Peripheral vascular disease, previously on Plavix. 6. Hypothyroidism. PLAN AND DISCUSSION: I will of course continue her chest tubes on suction today. I am gratified that her nausea is better and her pain is still well controlled with the epidural consisting of just bupivacaine. I did go over the slides with Dr. Camarena of pathology, and this is well-differentiated adenocarcinoma with a maximum dimension of between 3-4 cm, making her T2a with all nodes negative, N0 without distant metastases, M0. This maps to stage IB. As such, she should not need adjuvant chemotherapy.
--- NOTE | 2020-06-18 12:53 | IPN ---
PROGRESS NOTE DATE: 06/18/2020 SUBJECTIVE: This is now the third postoperative day for Ms. Miramontes. Her rolling air leak has diminished quite a bit. There is now only an intermittent air leak with forceful coughing. Her pain is being well-controlled with the epidural. I have informed her of the staging with all lymph nodes negative being stage 1B and will not need adjuvant chemotherapy. OBJECTIVE: VITAL SIGNS: Show a T-max of 100.5 with a heart rate that ranges between 56 and 77 in a sinus rhythm, respiratory rate 16 to 18 without the use of accessory muscles who was 95% to 96% saturated on 2 liters nasal cannula and whose blood pressure is ranging between 159/67 to 117/56. INTAKE AND OUTPUT: Over the past 24 hours has been recorded as 2412 in and 3055 out for a negativity of 650 mL. She has put out 500 mL from the chest tube down from 650 the day before. In the last 12 hours, she has put out 90 mL. There is a minimal air leak with forceful coughing. RESPIRATORY: She has equal breath sounds on either side. She has coarse rhonchi and rales on the left side with a percussion note that is full to the diaphragm. Most of the rhonchi clear with coughing. Percussion note is full to the diaphragm. CARDIAC: Without murmurs, clicks, gallops, or rubs. I cannot feel her PMI. S1 and S2 are normal. ABDOMEN: Soft and nontender. Bowel sounds are positive. There is no hepatomegaly. No CVA tenderness. EXTREMITIES: Show no pretibial edema. No calf tenderness. No differential swelling of the upper extremities. SKIN: Warm, dry, and perfused without cyanosis or mottling, including that of the nail beds and knees. NECK: Supple. There is no jugular venous distention. No subcutaneous emphysema. Trachea is midline. MOUTH: Shows her mucous membranes to be pink and moist. Lips and commisures are without lesions and no thrush. EYES: Show her pupils equal and reactive. Extraocular movements are intact. Sclerae nonicteric. NEUROLOGIC: Shows II through XII intact. Normal gross motor, gross sensation intact. Gait is not tested. PSYCHIATRIC: Shows her to be awake, alert, and oriented x3 with appropriate mood and affect and conversational. LABORATORY DATA: Her white count today is 8.2 with a hemoglobin and hematocrit of 11.2 and 34.9 respectively slightly down from 11.8 and 37.0 yesterday. Platelet count is 193,000 and stable. Differential shows 18% neutrophils, 10% lymphocytes, and 7% monocytes. There are no immature forms and no toxic granulations. Her electrolytes are normal with a potassium of 3.6 and a BUN and creatinine of 10 and 0.58 and glucose of 105 with a calcium of 8.0. IMAGING DATA: Her chest x-ray today shows her lungs fully expand to the chest wall. There is some residual subcutaneous emphysema in the upper lateral chest wall. Costophrenic angles are sharp. I see no infiltrates. There is obligate volume loss from the lobectomy. I can see subcutaneous emphysema on the lateral film on her back. IMPRESSION: 1. Postoperative day #3 status post left upper lobectomy. 2. Well-differentiated adenocarcinoma T2a N0 M0, which maps to stage 1B. 3. Chronic obstructive pulmonary disease (COPD). 4. Hypertension. 5. Peripheral vascular disease previously on Plavix. 6. Hypothyroidism. PLAN AND DISCUSSION: I will transfer to the PCU today. I am quite gratified that her air leak has diminished. I will diurese her once again. I will also replace her Lasix. Her nausea has resolved, she is eating, and we will discontinue her IV.
[2020-06-18] MEDS: BUPIVACAINE/NACL BAG 250 ML EPIDURAL SCH (13:59)
[2020-06-18] MEDS: TIOTROPIUM INHALER/CAPSULE (SPIRIVA) INH SCH (19:46)
[2020-06-18] MEDS: DOCUSATE SODIUM 100MG CAPSULE PO PRN (21:29)
[2020-06-19] VITALS: BP 133/60
[2020-06-19] MEDS: LEVALBUTEROL 1.25 MG/0.5 ML CONCENTRATE NEB NEB SCH ×4 (03:22→20:00)
[2020-06-19 04:00] VITALS: BP 142/65
[2020-06-19 04:00] LABS: BASO % 0.3 % (0.0-1.0); EOS # 0.2 10^3/uL (0.0-0.5); EOS % 3.4 % (0.0-3.0); HEMATOCRIT 34.7 % (36.0-47.0); HEMOGLOBIN 10.9 g/dl (12.0-15.5); MEAN CORPUSCULAR HGB CONC 31.4 g/dl (32.0-36.5); MEAN CORPUSCULAR VOLUME 92.3 fl (80.0-96.0); MONO # 0.6 10^3/uL (0.0-0.8); MONO % 8.8 % (2.0-8.0); NEUTROPHILS # 5.2 10^3/uL (1.5-8.5); NEUTROPHILS % 72.9 % (36.0-66.0); PLATELET COUNT, AUTOMATED 180 10^3/uL (150-450); RED BLOOD COUNT 3.76 10^6/uL (4.00-5.40); WHITE BLOOD COUNT 7.2 10^3/uL (4.0-10.0)
[2020-06-19 04:22] LABS: BLOOD UREA NITROGEN 12 MG/DL (7-18); CALCIUM LEVEL 7.9 MG/DL (8.8-10.2); CARBON DIOXIDE LEVEL 32 MEQ/L (21-32); CHLORIDE LEVEL 109 MEQ/L (98-107); GLOMERULAR FILTRATION RATE > 60.0 (>39); GLUCOSE, FASTING 95 MG/DL (70-100); SODIUM LEVEL 143 MEQ/L (136-145)
[2020-06-19] MEDS: LEVOTHYROXINE 88MCG TABLET (0.088 MG) PO SCH (06:32)
[2020-06-19] MEDS: KETOROLAC 30 MG/ML 1ML VIAL IV SCH ×4 (06:35→23:49)
[2020-06-19] MEDS: SYMBICORT 160/4.5MCG INHALER 6GM INH SCH ×2 (07:19→19:32)
[2020-06-19 08:00] VITALS: BP 118/68
--- NOTE | 2020-06-19 08:09 | REP ---
INDICATION: s/p lung resection COMPARISON: 06/18/2020 TECHNIQUE: PA and lateral. FINDINGS: Postsurgical changes involving the left hemithorax with 2 chest tubes in stable position along with bilateral pleuroparenchymal changes are relatively similar to prior examination. A small residual left apical pneumothorax is suspected. No new acute process identified. IMPRESSION: Findings are essentially unchanged as compared to prior examination. <Electronically signed by Placido Valdes > 06/19/20 0883
[2020-06-19] MEDS: VITAMIN D 1,000 INTERNATIONAL UNITS TABLET PO SCH (08:39)
[2020-06-19] MEDS: ASPIRIN 81MG ENTERIC TABLET PO SCH (08:39)
[2020-06-19] MEDS: MOM 30ML SUSPENSION UDC PO SCH ×2 (08:40→08:48)
[2020-06-19] MEDS: ROSUVASTATIN 10 MG TAB (CRESTOR) PO SCH (08:40)
[2020-06-19] MEDS: POTASSIUM CHLORIDE 10 MEQ SR TABLET PO SCH (08:40)
[2020-06-19] MEDS: PANTOPRAZOLE 40MG TAB (PROTONIX) PO SCH (08:40)
[2020-06-19] MEDS: FUROSEMIDE 40MG/4ML VIAL (J1940) IV SCH ×2 (08:41→17:55)
[2020-06-19] MEDS: HEPARIN SOD (PORCINE) 5000UNITS/ML 1ML VIAL/SYRINGE SC SCH ×2 (08:41→20:30)
[2020-06-19] MEDS: atenoloL 50 MG TAB PO SCH (08:45)
[2020-06-19] MEDS ORDERED: SLF 3 ML SYR IV PRN (08:55)
[2020-06-19 12:00] VITALS: BP 109/58
[2020-06-19] MEDS: BUPIVACAINE/NACL BAG 250 ML EPIDURAL SCH (13:52)
[2020-06-19] MEDS: SLF 3 ML SYR IV SCH ×2 (14:34→20:30)
[2020-06-19 16:00] VITALS: BP 117/57
--- NOTE | 2020-06-19 18:07 | IPN ---
PROGRESS NOTE DATE: 06/19/2020 This is now the 4th postoperative day for Ms.. Miramontes. Her pain is being well controlled, and she has just a one-bubble minimal air leak with forceful coughing. She is breathing well. Her vital signs show a maximum temperature of 98.4 with a heart rate that ranges between 57-74 in a sinus rhythm, respiratory rate that is constant at 18, who is 94%-96% saturated now on 1 liter nasal cannula, and whose blood pressure is ranging between 109/58 to 142/65. Her intake and output for the past 24 hours has been recorded as 2800 in, 2950 out, for a negativity of 150 mL. She has put 475 mL out of the chest tube. Her weight today is 74.4 kg today compared to 74.3 kg on June 16. On physical examination, she has equal breath sounds on either side with rales and coarse rhonchi, most of which was cleared with cough, particularly on the left side. Percussion note is full to the diaphragm. Cardiac exam is without murmurs, clicks, gallops, or rubs. I cannot feel her point of maximal impulse (PMI). S1 and S2 are normal. Abdomen is soft and nontender. Bowel sounds are positive. There is no hepatomegaly. No costovertebral angle (CVA) tenderness. Extremities show no pretibial edema, no calf tenderness, no differential swelling of the upper extremities. Skin is warm, dry, and perfused without cyanosis or mottling, including that of the nailbeds and knees. Neck is supple. There is no jugular venous distention. No subcutaneous emphysema. Trachea is midline. Mouth shows the mucous membranes to be pink and moist. Lips and commissures without lesions. No thrush. Eyes show her pupils to be equal and reactive. Extraocular motion intact. Sclerae anicteric. Neurologic shows II-XII intact. Normal gross motor, gross sensation intact. Gait is not tested. Psychiatric shows her to be awake, alert, and oriented times three with appropriate mood and affect and conversational. Her white count today is 7.2 with a hemoglobin and hematocrit of 10.9 and 34.7, essentially unchanged from yesterday, with a platelet count of 180 and stable. Differential shows 72% neutrophils, 14% lymphocytes, 8% monocytes. There are no immature forms or toxic granulations. Her electrolytes are essentially normal with a BUN and creatinine of 12 and 0.6 with a glucose of 95 and a calcium of 7.9. Her chest x-ray shows her lung fully expanded to the chest wall with sharp costophrenic angles. Lateral chest x-ray does not show any posterior infiltrates. Subcutaneous emphysema is dissipating both on the lateral film in the back and on the lateral chest wall in the PA film. IMPRESSION: 1. Postoperative day #4 status post left upper lobectomy. 2. Well-differentiated adenocarcinoma, [id number], or stage IB. 3. Chronic obstructive pulmonary disease (COPD). 4. Hypertension. 5. Peripheral vascular disease, previously on Plavix. 6. Hypothyroidism. PLAN AND DISCUSSION: I will continue her chest tube on suction today. She still has a small air leak, and she is putting way too much out the chest tube to consider pulling it. I will more vigorously diurese her with two doses of Lasix today of 40 mg. I will anticipatorily replace her potassium.
[2020-06-19] MEDS: TIOTROPIUM INHALER/CAPSULE (SPIRIVA) INH SCH (19:32)
[2020-06-19 20:00] VITALS: BP 139/59
[2020-06-19] MEDS: DOCUSATE SODIUM 100MG CAPSULE PO PRN (20:30)
[2020-06-20] VITALS (7 sets, daily range): BP systolic 120–138; BP diastolic 58–65
[2020-06-20] MEDS: LEVALBUTEROL 1.25 MG/0.5 ML CONCENTRATE NEB NEB SCH ×4 (02:00→20:00)
[2020-06-20 04:54] LABS: BASO % 0.4 % (0.0-1.0); EOS # 0.2 10^3/uL (0.0-0.5); EOS % 3.3 % (0.0-3.0); HEMATOCRIT 34.5 % (36.0-47.0); HEMOGLOBIN 10.9 g/dl (12.0-15.5); LYMPH # 0.9 10^3/uL (1.5-5.0); LYMPH % 13.5 % (24.0-44.0); MEAN CORPUSCULAR HEMOGLOBIN 28.8 pg (27.0-33.0); MEAN CORPUSCULAR HGB CONC 31.6 g/dl (32.0-36.5); MEAN CORPUSCULAR VOLUME 91.3 fl (80.0-96.0); MONO # 0.6 10^3/uL (0.0-0.8); MONO % 8.6 % (2.0-8.0); NEUTROPHILS # 5.1 10^3/uL (1.5-8.5); NEUTROPHILS % 73.8 % (36.0-66.0); PLATELET COUNT, AUTOMATED 192 10^3/uL (150-450); RED BLOOD COUNT 3.78 10^6/uL (4.00-5.40); WHITE BLOOD COUNT 6.9 10^3/uL (4.0-10.0)
[2020-06-20] MEDS: LEVOTHYROXINE 88MCG TABLET (0.088 MG) PO SCH (05:06)
[2020-06-20] MEDS: SLF 3 ML SYR IV SCH ×3 (05:07→20:30)
[2020-06-20] MEDS: KETOROLAC 30 MG/ML 1ML VIAL IV SCH ×3 (05:07→17:51)
[2020-06-20 05:16] LABS: BLOOD UREA NITROGEN 17 MG/DL (7-18); CALCIUM LEVEL 8.7 MG/DL (8.8-10.2); CARBON DIOXIDE LEVEL 32 MEQ/L (21-32); CHLORIDE LEVEL 107 MEQ/L (98-107); CREATININE FOR GFR 0.66 MG/DL (0.55-1.30); GLOMERULAR FILTRATION RATE > 60.0 (>39); GLUCOSE, FASTING 100 MG/DL (70-100); POTASSIUM SERUM 3.8 MEQ/L (3.5-5.1); SODIUM LEVEL 141 MEQ/L (136-145)
[2020-06-20] MEDS: SYMBICORT 160/4.5MCG INHALER 6GM INH SCH ×2 (07:18→20:54)
[2020-06-20] MEDS: TIOTROPIUM INHALER/CAPSULE (SPIRIVA) INH SCH ×2 (07:18→20:55)
--- NOTE | 2020-06-20 08:01 | REP ---
INDICATION: s/p lung resection COMPARISON: 06/19/2020 TECHNIQUE: PA and lateral. FINDINGS: Postsurgical changes and pleuroparenchymal changes primarily involving the left hemithorax and right basilar opacities remain essentially unchanged. There is near complete resolution to the left apical pneumothorax. No new acute process appreciated. IMPRESSION: 1. Near complete resolution to the left apical pneumothorax. 2. No significant change from prior examination. No new acute process appreciated. <Electronically signed by Placido Valdes > 06/20/20 [id number]
[2020-06-20] MEDS: ASPIRIN 81MG ENTERIC TABLET PO SCH (08:50)
[2020-06-20] MEDS: PANTOPRAZOLE 40MG TAB (PROTONIX) PO SCH (08:50)
[2020-06-20] MEDS: HEPARIN SOD (PORCINE) 5000UNITS/ML 1ML VIAL/SYRINGE SC SCH ×2 (08:50→20:29)
[2020-06-20] MEDS: atenoloL 50 MG TAB PO SCH (08:52)
[2020-06-20] MEDS: ROSUVASTATIN 10 MG TAB (CRESTOR) PO SCH (08:57)
[2020-06-20] MEDS: POTASSIUM CHLORIDE 10 MEQ SR TABLET PO SCH (08:57)
[2020-06-20] MEDS: VITAMIN D 1,000 INTERNATIONAL UNITS TABLET PO SCH (08:57)
[2020-06-20] MEDS: MOM 30ML SUSPENSION UDC PO SCH (08:58)
--- NOTE | 2020-06-20 10:24 | IPN ---
PROGRESS NOTE DATE: 06/20/2020 SUBJECTIVE: This is now the fifth postoperative day for Mrs. Miramontes. Her pain is being well-controlled with the epidural. Her chest tube output is coming down. There is a one bubble air leak with forceful cough. OBJECTIVE: VITAL SIGNS: Show a T-max of 97.6 with a heart rate that ranges between 56 and 70 in sinus rhythm. Respiratory rate of 17 to 18 without the use of accessory muscles who was 92% to 94% saturated on 1 liter nasal cannula and whose blood pressure is ranging between 129/60 to 138/63. INTAKE AND OUTPUT: Over the past 24 hours has been recorded as 1488 in and 1408 out for a positivity of 80 mL. This is in the face of two doses of Lasix yesterday. Urine output has been 1125 and her chest tube output is 283. She has put 57 mL out in the last 12 hours. There is a one bubble air leak with forceful coughing. RESPIRATORY: She has some coarse rhonchi most of which clear with cough. These are bilateral, but more on the left than the right. Percussion note is full to the diaphragm. CARDIAC: Without murmurs, clicks, gallops, or rubs. I cannot feel her PMI. S1 and S2 are normal. ABDOMEN: Soft and nontender. Bowel sounds are positive. There is no hepatomegaly. No CVA tenderness. EXTREMITIES: Show no pretibial edema. No calf tenderness. No differential swelling of the upper extremities. SKIN: Warm, dry, and perfused without cyanosis or mottling, including that of the nail beds and knees. NECK: Supple. There is no jugular venous distention. No subcutaneous emphysema. Trachea is midline. MOUTH: Shows the mucous membranes to be pink and moist. Lips and commisures are without lesions and no thrush. EYES: Show her pupils equal and reactive. Extraocular motions are intact. Sclerae nonicteric. NEUROLOGIC: Shows II through XII intact. Normal gross motor, gross sensation intact. Gait is not tested. PSYCHIATRIC: Shows her to be awake, alert, and oriented x3 with appropriate mood and affect and conversational. LABORATORY DATA: Her white count today is 6.9 with hemoglobin and hematocrit of 10.9 and 34.5 unchanged from yesterday with a platelet count of 192,000. Platelet count is stable. Differential shows 73% neutrophils, 13% lymphocytes, 8% monocytes. There are no immature forms and no toxic granulations. Her electrolytes are normal with a BUN and creatinine of 17 and 0.66, glucose of 100, and a calcium of 8.7. IMAGING DATA: Her chest x-ray shows her lungs fully expand to the chest wall. Costophrenic angles are sharp. Subcutaneous emphysema is all but dissipated. There is obligate volume loss of the left side secondary to the lobectomy. Chest tubes are in good place. I see no infiltrates. IMPRESSION: 1. Postoperative day #5 status post left upper lobectomy. 2. Well-differentiated adenocarcinoma T2a N0 M0, stage 1B. 3. Chronic obstructive pulmonary disease (COPD). 4. Hypertension. 5. Peripheral vascular disease previously on Plavix. 6. Hypothyroidism. PLAN AND DISCUSSION: I will discontinue her chest tube suction today. As she did not respond to the Lasix yesterday and as her chest tube output is coming down, I will not diurese her today. Her BUN and creatinine are stable. Hopefully, I will be able to remove the chest tubes tomorrow. She is still being evaluated by speech therapy for swallowing.
[2020-06-20] MEDS: BISACODYL 10 MG SUPP PR PRN (12:13)
[2020-06-20] MEDS: BUPIVACAINE/NACL BAG 250 ML EPIDURAL SCH (12:58)
[2020-06-20] MEDS: DOCUSATE SODIUM 100MG CAPSULE PO PRN (20:29)
[2020-06-21] MEDS: KETOROLAC 30 MG/ML 1ML VIAL IV SCH ×4 (00:47→17:14)
[2020-06-21] MEDS: LEVALBUTEROL 1.25 MG/0.5 ML CONCENTRATE NEB NEB SCH ×4 (01:24→19:48)
[2020-06-21 04:02] LABS: BASO % 0.7 % (0.0-1.0); EOS # 0.3 10^3/uL (0.0-0.5); EOS % 4.8 % (0.0-3.0); HEMATOCRIT 36.4 % (36.0-47.0); HEMOGLOBIN 11.7 g/dl (12.0-15.5); LYMPH # 0.9 10^3/uL (1.5-5.0); LYMPH % 16.1 % (24.0-44.0); MEAN CORPUSCULAR HEMOGLOBIN 29.6 pg (27.0-33.0); MEAN CORPUSCULAR HGB CONC 32.1 g/dl (32.0-36.5); MEAN CORPUSCULAR VOLUME 92.2 fl (80.0-96.0); MONO # 0.5 10^3/uL (0.0-0.8); MONO % 8.5 % (2.0-8.0); NEUTROPHILS # 3.9 10^3/uL (1.5-8.5); NEUTROPHILS % 69.4 % (36.0-66.0); PLATELET COUNT, AUTOMATED 201 10^3/uL (150-450); RED BLOOD COUNT 3.95 10^6/uL (4.00-5.40); WHITE BLOOD COUNT 5.6 10^3/uL (4.0-10.0)
[2020-06-21 04:17] LABS: BLOOD UREA NITROGEN 15 MG/DL (7-18); CALCIUM LEVEL 8.6 MG/DL (8.8-10.2); CARBON DIOXIDE LEVEL 27 MEQ/L (21-32); CHLORIDE LEVEL 110 MEQ/L (98-107); GLOMERULAR FILTRATION RATE > 60.0 (>39); GLUCOSE, FASTING 94 MG/DL (70-100); POTASSIUM SERUM 4.5 MEQ/L (3.5-5.1); SODIUM LEVEL 139 MEQ/L (136-145)
[2020-06-21] MEDS: LEVOTHYROXINE 88MCG TABLET (0.088 MG) PO SCH (05:07)
[2020-06-21] MEDS: SLF 3 ML SYR IV SCH ×3 (05:08→20:10)
[2020-06-21 05:16] VITALS: BP 154/67
[2020-06-21] MEDS: SYMBICORT 160/4.5MCG INHALER 6GM INH SCH ×2 (07:13→19:48)
[2020-06-21 07:27] VITALS: BP 138/65
[2020-06-21] MEDS: HEPARIN SOD (PORCINE) 5000UNITS/ML 1ML VIAL/SYRINGE SC SCH ×2 (08:05→20:10)
[2020-06-21] MEDS: VITAMIN D 1,000 INTERNATIONAL UNITS TABLET PO SCH (08:05)
[2020-06-21] MEDS: PANTOPRAZOLE 40MG TAB (PROTONIX) PO SCH (08:06)
[2020-06-21] MEDS: ROSUVASTATIN 10 MG TAB (CRESTOR) PO SCH (08:06)
[2020-06-21] MEDS: ASPIRIN 81MG ENTERIC TABLET PO SCH (08:06)
[2020-06-21] MEDS: POTASSIUM CHLORIDE 10 MEQ SR TABLET PO SCH (08:06)
[2020-06-21] MEDS: atenoloL 50 MG TAB PO SCH (08:06)
[2020-06-21] MEDS: MOM 30ML SUSPENSION UDC PO SCH (08:07)
--- NOTE | 2020-06-21 08:22 | REP ---
INDICATION: s/p lung resection COMPARISON: 06/20/2020 TECHNIQUE: PA and lateral. FINDINGS: Two left-sided chest tubes are again identified in stable position with small left apical pneumothorax appearing slightly increased from prior examination. Underlying primarily left-sided pleuroparenchymal changes are relatively stable bilaterally. No new consolidation, obvious effusion, or pneumothorax. Mediastinum and cardiac silhouette are normal. Skeletal structures are stable. IMPRESSION: Small left apical pneumothorax minimally increased from prior examination. Otherwise essentially continued stable pleuroparenchymal changes. <Electronically signed by Placido Valdes > 06/21/20 [id number]
[2020-06-21 12:00] VITALS: BP 124/58
[2020-06-21 16:00] VITALS: BP 139/65
[2020-06-21 19:00] VITALS: BP 125/61
[2020-06-21] MEDS: TIOTROPIUM INHALER/CAPSULE (SPIRIVA) INH SCH (19:51)
[2020-06-21] MEDS: DOCUSATE SODIUM 100MG CAPSULE PO PRN (20:10)
[2020-06-22] VITALS: BP 160/70
[2020-06-22] MEDS: KETOROLAC 30 MG/ML 1ML VIAL IV SCH ×5 (00:38→23:46)
[2020-06-22] MEDS: LEVALBUTEROL 1.25 MG/0.5 ML CONCENTRATE NEB NEB SCH ×4 (02:00→19:40)
[2020-06-22] MEDS: ACETAMINOPHEN TAB 650MG DOSE (2X325MG) PO PRN ×3 (02:05→21:00)
[2020-06-22 04:00] VITALS: BP 148/67
[2020-06-22 04:45] LABS: BASO % 0.6 % (0.0-1.0); EOS # 0.3 10^3/uL (0.0-0.5); EOS % 4.5 % (0.0-3.0); HEMATOCRIT 36.1 % (36.0-47.0); HEMOGLOBIN 11.7 g/dl (12.0-15.5); LYMPH % 13.7 % (24.0-44.0); MEAN CORPUSCULAR HEMOGLOBIN 29.5 pg (27.0-33.0); MEAN CORPUSCULAR HGB CONC 32.4 g/dl (32.0-36.5); MEAN CORPUSCULAR VOLUME 91.2 fl (80.0-96.0); MONO # 0.7 10^3/uL (0.0-0.8); MONO % 9.6 % (2.0-8.0); PLATELET COUNT, AUTOMATED 248 10^3/uL (150-450); RED BLOOD COUNT 3.96 10^6/uL (4.00-5.40); WHITE BLOOD COUNT 7.1 10^3/uL (4.0-10.0)
[2020-06-22 05:22] LABS: BLOOD UREA NITROGEN 15 MG/DL (7-18); CALCIUM LEVEL 8.5 MG/DL (8.8-10.2); CARBON DIOXIDE LEVEL 27 MEQ/L (21-32); CHLORIDE LEVEL 109 MEQ/L (98-107); CREATININE FOR GFR 0.71 MG/DL (0.55-1.30); GLOMERULAR FILTRATION RATE > 60.0 (>39); GLUCOSE, FASTING 102 MG/DL (70-100); POTASSIUM SERUM 4.8 MEQ/L (3.5-5.1); SODIUM LEVEL 140 MEQ/L (136-145)
[2020-06-22] MEDS: LEVOTHYROXINE 88MCG TABLET (0.088 MG) PO SCH (05:32)
[2020-06-22] MEDS: SLF 3 ML SYR IV SCH ×3 (05:33→20:59)
[2020-06-22] MEDS ORDERED: OXYMETAZOLINE 0.05% NASAL SPRAY (AFRIN) PRN (06:00)
[2020-06-22] MEDS: SYMBICORT 160/4.5MCG INHALER 6GM INH SCH ×2 (07:25→19:39)
[2020-06-22 08:00] VITALS: BP 147/65
--- NOTE | 2020-06-22 08:39 | REP ---
INDICATION: s/p lung resection COMPARISON: 06/21/2020 TECHNIQUE: PA and lateral. FINDINGS: Two left-sided chest tubes and postsurgical pleuroparenchymal changes involving the left hemithorax including small left apical pneumothorax again noted and unchanged. Mediastinum and cardiac silhouette within normal limits. Right hemithorax appears clear. Skeletal structures stable. IMPRESSION: No significant change from prior examination. Continued small left apical pneumothorax. <Electronically signed by Placido Valdes > 06/22/20 [id number]
[2020-06-22] MEDS: MOM 30ML SUSPENSION UDC PO SCH (09:00)
[2020-06-22] MEDS ORDERED: FUROSEMIDE 40MG/4ML VIAL (J1940) IV ONE (09:10)
[2020-06-22] MEDS: HEPARIN SOD (PORCINE) 5000UNITS/ML 1ML VIAL/SYRINGE SC SCH ×2 (09:37→20:58)
[2020-06-22] MEDS: VITAMIN D 1,000 INTERNATIONAL UNITS TABLET PO SCH (09:38)
[2020-06-22] MEDS: atenoloL 50 MG TAB PO SCH (09:39)
[2020-06-22] MEDS: POTASSIUM CHLORIDE 10 MEQ SR TABLET PO SCH (09:39)
[2020-06-22] MEDS: ASPIRIN 81MG ENTERIC TABLET PO SCH (09:39)
[2020-06-22] MEDS: PANTOPRAZOLE 40MG TAB (PROTONIX) PO SCH (09:39)
[2020-06-22] MEDS: ROSUVASTATIN 10 MG TAB (CRESTOR) PO SCH (09:40)
--- NOTE | 2020-06-22 09:54 | IPN ---
PROGRESS NOTE DATE: 06/21/2020 SUBJECTIVE: This is the 6th postoperative day for Ms. Miramontes. She has had a stable 24 hours. My attention was to pull the chest tube today, however, she still has an air leak. Her vital signs show a T-max of 97.7 with a heart rate ranging from 66 to 72 in sinus rhythm, respiratory rate of 19 to 20 without use of accessory muscles, 92 to 96% saturated on 1 liter of nasal cannula. Her blood pressure is ranging from 154/67 to 168/65. Intake and output over the past 24 hours has been recorded as 1320 in, 1199 out for a positive of 121 ml. She has 149 ml in the chest tube. There is a small air leak with forceable coughing. Weight today is 76 kg, weight was 76.7 kg yesterday. PHYSICAL EXAMINATION: She has equal breath sounds on either side. She has normal vesicular sounds on either side. Percussion notes are full at the diaphragm. Cardiac examination without murmurs, clicks, gallops or rubs. I cannot feel her PMI. S1, S2 are normal. Abdomen is soft and nontender. Bowel sounds are positive. No hepatomegaly. No costovertebral angle (CVA) tenderness. Extremities show no peripheral edema. No calf tenderness. No differential swelling of the upper extremities. Skin is warm, dry and perfuse without cyanosis or mottling including the nail beds and knees. Neck is supple. There is no jugular venous distention. No subcutaneous emphysema. Trachea is midline. Mouth shows mucous membranes to pink and moist. Lips and commissures without lesions or thrush. Eyes show pupils equal and reactive. Extraocular muscles are intact. Sclerae nonicteric. She has disconjugate gait from prior thyroid toxicosis. Neuro shows II through XII intact. Normal gross motor, normal sensation intact. Gait is not tested Psychiatric: She is awake, alert and oriented x3. She has appropriate mood and affect and conversational LABORATORY DATA: White count is 5.6, hemoglobin and hematocrit of 11.7 and 36.4 respectively. Platelet count today is 201 and stable. Differentials show 69% neutrophils, 15% lymphocytes, 8% monocytes. There are no immature forms or toxic granulations. Her electrolytes are essentially normal with a BUN and creatinine of 15 and 0.70, glucose of 94 and calcium of 8.6. Her chest x-ray shows her lungs fully expanded to chest full. Costophrenic angles are sharp. I see no infiltrates. IMPRESSION: 1. Postoperative day 6, status post left upper lobectomy. 2. Well differentiated adenocarcinoma [id number] stage I-B. 3. Chronic obstructive pulmonary disease (COPD). 4. Hypertension. 5. Peripheral vascular disease (PVD), previously on Plavix. 6. Hypothyroidism. PLAN AND DISCUSSION: The patient has intermittent one level air leak. I will clamp her chest tube today. Will obtain a chest x-ray tomorrow. If lung is still applied to the chest wall, I will then remove the tube. Revealed that her subcutaneous emphysema is almost completely dissipated and gone on the chest x-ray. I do feel a few subcutaneous emphysema at the base of the neck posteriorly.
[2020-06-22 11:56] VITALS: BP 119/58
--- NOTE | 2020-06-22 12:14 | IPN ---
PROGRESS NOTE DATE: 06/22/2020 SUBJECTIVE: This is now the 7th postoperative day for Mrs. Miramontes status post a left upper lobectomy. Her pain is being fairly well-controlled with the epidural. Her chest x-ray today shows her lungs fully expand to the chest wall after having had the tube clamped for 24 hours. OBJECTIVE: VITAL SIGNS: Show a T-max of 97.6 with a heart rate that ranges between 52 and 70 in sinus rhythm. Respiratory rate of 16 to 21 without the use of accessory muscles who is 93% to 98% saturated on 1 liter nasal cannula and whose blood pressure is ranging between 160/70 to 147/65. INTAKE AND OUTPUT: Over the past 24 hours has been recorded as 1957 in and 358 out for a positivity of 1599 mL. She has only put out 300 mL in urine. Weight today is 74.2 kg compared to 76 kg yesterday. RESPIRATORY: Her lungs show equal breath sounds on either side with some scattered rhonchi throughout, particularly on the left side. Percussion notes are full to the diaphragm. CARDIAC: Without murmurs, clicks, gallops, or rubs. I cannot feel her PMI. S1 and S2 are normal. ABDOMEN: Soft and nontender. Bowel sounds are positive. There is no hepatomegaly. No CVA tenderness. EXTREMITIES: Show no pretibial edema. No calf tenderness. No differential swelling of the upper extremities. SKIN: Warm, dry, and perfused without cyanosis or mottling, including that of the nail beds and knees. NECK: Supple. There is no jugular venous distention. No subcutaneous emphysema. Trachea is midline. MOUTH: Shows the mucous membranes to be pink and moist. Lips and commisures are without lesions and no thrush. EYES: Show her pupils equal and reactive. Extraocular movements are intact. Sclerae nonicteric. She has disconjugate gaze. NEUROLOGIC: Shows II through XII intact. Normal gross motor, gross sensation intact. Gait is not tested. PSYCHIATRIC: Shows her to be awake, alert, and oriented x3 with appropriate mood and affect and conversational. LABORATORY DATA: Her white count today is 7.1 with a hemoglobin and hematocrit of 11.7 and 36.1 respectively with a platelet count of 248,000. Differential shows 71% neutrophils, 13% lymphocytes, 9% monocytes. No immature forms and no toxic granulations. Electrolytes are normal with a BUN and creatinine of 15 and 0.71 with a glucose of 102 and a calcium of 8.5. IMPRESSION: 1. Postoperative day #7 status post left upper lobectomy. 2. Well-differentiated adenocarcinoma T2a N0 M0, stage 1B. 3. Chronic obstructive pulmonary disease (COPD). 4. Hypertension. 5. Peripheral vascular disease on Plavix. 6. Hypothyroidism. PLAN AND DISCUSSION: I will discontinue her chest tubes today. We will wean the epidural and discontinue the Echavarria. I will diurese her again today. If all goes well, we will plan for discharge in the morning.
[2020-06-22] MEDS: BUPIVACAINE/NACL BAG 250 ML EPIDURAL SCH (13:00)
[2020-06-22 16:00] VITALS: BP 131/68
[2020-06-22] MEDS: TIOTROPIUM INHALER/CAPSULE (SPIRIVA) INH SCH (19:39)
[2020-06-22 20:00] VITALS: BP 124/71
[2020-06-22] MEDS ORDERED: MOM 30ML SUSPENSION UDC PO PRN (20:50)
[2020-06-23] VITALS: BP 142/84
[2020-06-23] MEDS: LEVALBUTEROL 1.25 MG/0.5 ML CONCENTRATE NEB NEB SCH ×2 (01:28→08:00)
[2020-06-23 04:00] VITALS: BP 155/68
[2020-06-23 05:09] LABS: BASO # 0.1 10^3/uL (0.0-0.2); BASO % 0.8 % (0.0-1.0); EOS # 0.3 10^3/uL (0.0-0.5); EOS % 5.5 % (0.0-3.0); HEMATOCRIT 38.7 % (36.0-47.0); HEMOGLOBIN 12.5 g/dl (12.0-15.5); LYMPH # 1.2 10^3/uL (1.5-5.0); LYMPH % 18.9 % (24.0-44.0); MEAN CORPUSCULAR HEMOGLOBIN 29.5 pg (27.0-33.0); MEAN CORPUSCULAR HGB CONC 32.3 g/dl (32.0-36.5); MEAN CORPUSCULAR VOLUME 91.3 fl (80.0-96.0); MONO # 0.6 10^3/uL (0.0-0.8); MONO % 8.9 % (2.0-8.0); NEUTROPHILS % 65.4 % (36.0-66.0); PLATELET COUNT, AUTOMATED 251 10^3/uL (150-450); RED BLOOD COUNT 4.24 10^6/uL (4.00-5.40); WHITE BLOOD COUNT 6.2 10^3/uL (4.0-10.0)
[2020-06-23 05:31] LABS: BLOOD UREA NITROGEN 15 MG/DL (7-18); CALCIUM LEVEL 8.6 MG/DL (8.8-10.2); CARBON DIOXIDE LEVEL 28 MEQ/L (21-32); CHLORIDE LEVEL 107 MEQ/L (98-107); CREATININE FOR GFR 0.76 MG/DL (0.55-1.30); GLOMERULAR FILTRATION RATE > 60.0 (>39); GLUCOSE, FASTING 100 MG/DL (70-100); POTASSIUM SERUM 4.3 MEQ/L (3.5-5.1); SODIUM LEVEL 140 MEQ/L (136-145)
[2020-06-23] MEDS: LEVOTHYROXINE 88MCG TABLET (0.088 MG) PO SCH (05:51)
[2020-06-23] MEDS: KETOROLAC 30 MG/ML 1ML VIAL IV SCH (05:52)
[2020-06-23] MEDS: SLF 3 ML SYR IV SCH (05:52)
[2020-06-23] MEDS: ACETAMINOPHEN TAB 650MG DOSE (2X325MG) PO PRN (05:59)
[2020-06-23 08:00] VITALS: BP 142/82
[2020-06-23] MEDS: SYMBICORT 160/4.5MCG INHALER 6GM INH SCH (08:00)
--- NOTE | 2020-06-23 08:06 | REP ---
INDICATION: s/p lung resection COMPARISON: None. TECHNIQUE: PA and lateral. FINDINGS: Left sided chest tubes have been removed and a small residual left apical pneumothorax is identified. Subtle airspace disease and blunting along the left lung base suggests continued atelectasis and possible small pleural effusion and chronic changes. The mediastinum and cardiac silhouette are stable. IMPRESSION: Chest tubes have been removed and small left apical pneumothorax is identified. Subtle airspace disease at the left base along with chronic changes suggested <Electronically signed by Placido Valdes > 06/23/20 [id number]
[2020-06-23] MEDS ORDERED: PERCOCET PO (08:52)
[2020-06-23] MEDS: HEPARIN SOD (PORCINE) 5000UNITS/ML 1ML VIAL/SYRINGE SC SCH (09:00)
[2020-06-23] MEDS: POTASSIUM CHLORIDE 10 MEQ SR TABLET PO SCH (09:00)
[2020-06-23 09:24] VITALS: BP 142/82
[2020-06-23] MEDS: VITAMIN D 1,000 INTERNATIONAL UNITS TABLET PO SCH (09:24)
[2020-06-23] MEDS: atenoloL 50 MG TAB PO SCH (09:24)
[2020-06-23] MEDS: ASPIRIN 81MG ENTERIC TABLET PO SCH (09:24)
[2020-06-23] MEDS: ROSUVASTATIN 10 MG TAB (CRESTOR) PO SCH (09:25)
[2020-06-23] MEDS: PANTOPRAZOLE 40MG TAB (PROTONIX) PO SCH (09:25)
--- NOTE | 2020-06-23 13:30 | DSES ---
DISCHARGE SUMMARY DATE OF ADMISSION: 06/15/2020 DATE OF DISCHARGE: 06/23/2020 DISCHARGE DIAGNOSES: 1. Well-differentiated adenocarcinoma, [id number], stage IB of lung. 2. Postoperative day #8 status post left upper lobectomy. 3. Chronic obstructive pulmonary disease. 4. Hypertension. 5. Peripheral vascular disease. 6. Peripheral vascular disease, previously on Plavix. 7. Hypothyroidism. HOSPITAL COURSE: Patient is a 74-year-old who is noted to have a right upper lobe nodule, which is followed since 2001 and has not changed; however, a scan in early 2019 shows she was having an infiltrate of left upper lobe lesion in the fissure, and subsequent scans showed this to have increased. She underwent a PET scan, which showed this to have a minimal uptake with an SUV of 1069. She was utterly asymptomatic from this mass. Her pulmonary function tests (PFTs) done on 04/02/2020 showed an FEV1 of 2.09, which is 93% of predicted with a DLCO diffusion capacity of 13.78, which was 67% of predicted. She was therefore taken to the operating room for diagnosis, and a wedge resection showed this to be adenocarcinoma. Therefore, a left upper lobectomy was completed with a complete mediastinal node dissection. All nodes were negative, and she staged out as above. As such, she has stage IB disease and will not need adjuvant chemotherapy. She had a benign postoperative course with a large postoperative air leak in the first 2 days, which gradually diminished. Her chest tube was removed on postoperative day #7, and chest x-ray the following morning showed her lung to be fully expanded to the chest wall. Her pain was well controlled with the epidural and is now being controlled with oral analgesics. She will return to see me in 1 week with postoperative followup with a chest x-ray. She is being discharged on her home medications, which include: - ProAir two puffs twice a day as needed for shortness of breath - aspirin 81 mg daily - atenolol 50 mg daily - Symbicort 160/4.5 one puff twice a day - vitamin D 2000 units daily - Plavix 75 mg daily - Colace 100 mg as needed for constipation - Lasix 20 mg daily - Synthroid 88 mcg daily, - lisinopril 10 mg daily - 20 mg daily - Spiriva 18 mcg one puff daily - She is also being sent home on Percocet 5/325 every 4 hours as needed for pain. As noted above, she will return to see me in 1 week with a chest x-ray. I have advised her not to drive but to be as active as possible.
== END 2020-06-23 11:16 | disposition home health service (06) | DRG 164 ==
LOC: M OR 07:30 → M ICU 14:16 → M PCU 06-18 14:54
PROVIDERS: ADMIT Thoracic Surgery (Cardiothoracic Vascular Surgery); ATTEND Thoracic Surgery (Cardiothoracic Vascular Surgery)
PROC: 07B70ZX Excision of Thorax Lymphatic, Open Approach, Diagnostic (ICD-10-PCS; 2020-06-15)
PROC: 0BJ08ZZ Inspection of Tracheobronchial Tree, Via Natural or Artificial Opening Endoscopic (ICD-10-PCS; 2020-06-15)
PROC: 0BTG0ZZ Resection of Left Upper Lung Lobe, Open Approach (ICD-10-PCS; principal; 2020-06-15 09:30)
DX: C34.12 Malignant neoplasm of upper lobe, left bronchus or lung (principal); J95.812 Postprocedural air leak; R11.0 Nausea; I10 Essential (primary) hypertension; J44.9 Chronic obstructive pulmonary disease, unspecified; I73.9 Peripheral vascular disease, unspecified; E03.9 Hypothyroidism, unspecified; Z79.82 Long term (current) use of aspirin; Z79.02 Long term (current) use of antithrombotics/antiplatelets; Z79.899 Other long term (current) drug therapy; Y83.0 Surgical operation with transplant of whole organ as the cause of abnormal reaction of the patient, or of later complication, without mention of misadventure at the time of the procedure

== ENCOUNTER → 2020-06-30 | Outpatient (CLI) | payer MEDICARE ==
[~2020-06-30] MED LIST changes: -LIDOCAINE 1% MDV 20ML VIAL SQ PRN; -LIDOCAINE 2% 100MG/5ML SDV (FOR ANES.) As Ordered ONE; -LIDOCAINE 2% W/EPINEPHRINE 20ML VIAL **PRES FREE As Ordered ONE; -LR 1,000 ML IV ONE; -MIDAZOLAM INJ 2MG/2ML VIAL (J2250 PER 1MG) As Ordered ONE; -MIDAZOLAM INJ 2MG/2ML VIAL (J2250 PER 1MG) IV PRN; -MORPHINE 10 MG/ML 1ML VIAL (J2270) As Ordered ONE; -MORPHINE PRES-FREE INJ 10 MG/10 ML VIAL (J2274) As Ordered ONE; -ONDANSETRON 4MG/2ML VIAL As Ordered ONE; +PERCOCET PO; -PHENYLEPHRINE 10MG/ML 1ML VIAL (J2370 PER 1) As Ordered ONE; -PHENYLephrine 500MCG 5ML (100MCG/ML) SYRINGE As Ordered ONE; -ROCURONIUM BROMIDE 50 MG/5 ML VIAL As Ordered ONE; -SUGAMMADEX SODIUM 500 MG/5 ML VIAL (BRIDION) As Ordered ONE; -ceFAZolin SOD 2 GM in IV 1 EA IV ONE; -dexameTHASONE 4 MG/ML 1ML VIAL (J1100 PER 1MG) As Ordered ONE; -ePHEDrine SULFATE 25 MG/5 ML(5MG/ML) SYRINGE As Ordered ONE; -fentaNYL 100 MCG/2 ML INJECTION (J3010) As Ordered ONE; -fentaNYL 100 MCG/2 ML INJECTION (J3010) IV PRN; -propofoL 200 MG/20 ML VIAL As Ordered ONE
--- NOTE | 2020-06-30 10:42 | REPPI ---
INDICATION: R91.1 SOLITARY PULMONARY NODULE COPD. COMPARISON: 06/23/2020. TECHNIQUE: Upright PA and lateral chest. FINDINGS: Surgical clips are again noted in the left hilus. There is a small left apical pneumothorax, not significantly changed. There is a phase min of the left costophrenic angle which could be secondary to decreased left lung volume from the lung resection, pleural effusion, atelectasis or scarring. This see effacement was also present on the comparison study. The right lung is clear. The cardiac size is normal. There is thoracic scoliosis convex right at the thoracolumbar junction, unchanged. IMPRESSION: The effacement of the left costophrenic angle has slightly increased. The small left apical pneumothorax is unchanged. <Electronically signed by Cezar Quinonez > 06/30/20 [id number]
== END ==
LOC: M PLAIMG 10:04
PROVIDERS: ATTEND Thoracic Surgery (Cardiothoracic Vascular Surgery)
DX: R91.1 Solitary pulmonary nodule (principal); J44.9 Chronic obstructive pulmonary disease, unspecified

== ENCOUNTER → 2020-07-20 | Outpatient (CLI) | payer MEDICARE ==
--- NOTE | 2020-07-20 10:28 | REPPI ---
INDICATION: C34.12 MALIGNANT NEOPLASM OF UPPER LOBE LEFT BRONCHUS OR LUNG. COMPARISON: 06/30/2020. TECHNIQUE: Upright PA and lateral chest. FINDINGS: The previous small left apical pneumothorax has resolved. There are surgical clips in the left hilus and there is volume loss the left hemithorax compatible with the clinical history of left lung lobectomy, likely left upper lobectomy. There is persistent effacement of the left costophrenic angle, unchanged, also likely secondary to left upper lobectomy, however, pleural effusion is not entirely discounted. Right lung is clear. Cardiac size is normal. Thoracic scoliosis convex right at the thoracolumbar junction is unchanged. IMPRESSION: The left apical pneumothorax has resolved. There is no other interval change. <Electronically signed by Cezar Quinonez > 07/20/20 [id number]
== END ==
LOC: M PLAIMG 09:49
PROVIDERS: ATTEND Thoracic Surgery (Cardiothoracic Vascular Surgery)
DX: C34.12 Malignant neoplasm of upper lobe, left bronchus or lung (principal); Z48.3 Aftercare following surgery for neoplasm

== ENCOUNTER → 2020-08-31 | Outpatient (CLI) | payer MEDICARE ==
--- NOTE | 2020-08-31 12:02 | REPPI ---
INDICATION: Z48.3 AFTERCARE SURGERY FOR NEOPLASM C34.12 MALIGNANT NEOPLA. COMPARISON: 07/20/2020 TECHNIQUE: PA and lateral FINDINGS: The cardiomediastinal silhouette is unchanged. The left basilar opacity seen previously has improved. Chronic fibrotic changes are again seen status quo. No new abnormal opacities have developed. There is no significant change in the appearance of the osseous structures. IMPRESSION: Improved left lung base and other findings as described above. <Electronically signed by Bonifacio Mcdonough > 08/31/20 [id number]
== END ==
LOC: M PLAIMG 11:27
PROVIDERS: ATTEND Thoracic Surgery (Cardiothoracic Vascular Surgery)
DX: Z48.3 Aftercare following surgery for neoplasm (principal); C34.12 Malignant neoplasm of upper lobe, left bronchus or lung